=== PATIENT | female | born 1995 | race Caucasian/White ===

== ENCOUNTER 2018-11-29 08:09 | Emergency (ER) | payer OTHER ==
[2018-11-29 08:41] VITALS: BP 129/82
[2018-11-29] MEDS ORDERED: Ketorolac INJ* 30 MG/ML 1 ML VIAL IM ONE (09:21)
--- NOTE | 2018-11-29 09:28 | UC ---
Neck Pain HPI - HPI Summary HPI Summary: 23-year-old woman comes in with a chief complaint of left neck pain. Pain started approximately November 21 the day after she got off a flight from [place]. She was sleeping on a calcium she woke up she had pain in the left lateral lower neck. She's been taking ibuprofen which helps minimally with the pain. Pain is worse when she leans forward and when she takes a deep breath. Sometimes the pain radiates down the back and into the left arm. No shortness of breath. The pain is there constantly but gets worse with bending forward or taking a deep breath. Pain is moderate to severe at this time. No weakness or numbness. No calf pain or tenderness. Patient has no prior history of blood clots. She is on a control pill. No fevers or chills. - History of Current Complaint Chief Complaint: UCUpperExtremity Stated Complaint: LEFT SIDE NECK/SHOULDER PAIN Time Seen by Provider: 11/29/18 09:05 Hx Last Menstrual Period: ~11/01/18 Pain Intensity: 10 - Allergies/Home Medications Allergies/Adverse Reactions: Allergies Allergy/AdvReac Type Severity Reaction Status Date / Time No Known Allergies Allergy Verified 11/29/18 08:37 Home Medications: Home Medications Ibuprofen TAB* [Advil TAB*] 600 mg PO Q6H PRN 11/29/18 [History Confirmed ] Levonorgestrel-Ethin Estradiol [Marlissa-28 Tablet] 1 each PO DAILY 11/29/18 [ History Confirmed 11/29/18] PMH/Surg Hx/FS Hx/Imm Hx Previously Healthy: Yes - Surgical History Surgical History: None - Family History Known Family History: Positive: Non-Contributory - Social History Alcohol Use: None Alcohol Amount: weekends Substance Use Type: None Smoking Status (MU): Never Smoked Tobacco - Immunization History Most Recent Influenza Vaccination: no Vaccination Up to Date: Yes Review of Systems All Other Systems Reviewed And Are Negative: Yes Constitutional: Positive: Negative Skin: Positive: Negative Eyes: Positive: Negative ENT: Positive: Negative Respiratory: Positive: Negative Cardiovascular: Positive: Other - see hpi Gastrointestinal: Positive: Negative Motor: Positive: Negative Neurovascular: Positive: Negative Musculoskeletal: Positive: Other: - see hpi Neurological: Positive: Negative Psychological: Positive: Negative Is Patient Immunocompromised?: No Physical Exam Triage Information Reviewed: Yes Appearance: Well-Appearing, Well-Nourished, Pain Distress - mild/moderate with leaning forward Vital Signs: Initial Vital Signs Temp 98.5 F 11/29/18 08:35 Pulse 69 11/29/18 08:35 Resp 16 11/29/18 08:35 BP 129/82 11/29/18 08:35 Pulse Ox 100 11/29/18 08:35 Neck Pain Course/Dx - Course Course Of Treatment: I recommended further evaluation emergency Department to rule out pulmonary embolus. Patient's pain started the day after she got off a long airplane flight and she is on control pills. Pain is constant although it is worse with certain movements but it's also worse with taking a deep breath. If the pain is primarily and neck injury follow-up would be with sports medicine. I did write a prescription for Flexeril and Sebastian to be used along with ibuprofen as needed. I spoke with Rani and the [facility] emergency department. Patient's going by POV to the emergency department. - Differential Dx/Diagnosis Provider Diagnosis: Neck pain on left side Discharge - Sign-Out/Discharge Documenting (check all that apply): Patient Departure All imaging exams completed and their final reports reviewed: No Studies - Discharge Plan Condition: Stable Disposition: HOME-RECOMMEND TO ED Prescriptions: Cyclobenzaprine TAB* [Flexeril 10 MG TAB*] 10 mg PO TID PRN #15 tab MDD 3 PRN Reason: Pain HYDROcodone/ACETAMIN 5-325 MG* [Sebastian 5-325 TAB*] 1 tab PO Q4H PRN #20 tab MDD 6 PRN Reason: Pain Patient Education Materials: Acute Neck Pain (ED) Forms: *Work Release Referrals: Gregory Mast DO [Primary Care Provider] - [facility] [Provider Group] Additional Instructions: GO DIRECTLY TO THE EMERGENCY DEPARTMENT FOR FURTHER EVALUATION. AFTER EVALUATION IN THE EMERGENCY DEPARTMENT AND PULMONARY EMBOLUS HAS BEEN RULED OUT THE CAUSE OF YOUR PAIN, FOLLOW UP WITH SPORTS MEDICINE. GET REEVALUATED SOONER IF WORSE; PAIN, SHORTNESS OF BREATH, WEAKNESS OR ANY QUESTIONS OR CONCERNS. - Billing Disposition and Condition Condition: STABLE Disposition: Home-Recommend to ED
== END 2018-11-29 09:51 | disposition home health service (06) ==
LOC: UCCORT 08:09
DX: M54.2 Cervicalgia (principal); X50.1XXA Overexertion from prolonged static or awkward postures, initial encounter; Y93.84 Activity, sleeping; Y92.813 Airplane as the place of occurrence of the external cause
CPT/HCPCS: 96372; 99212; G0463; J1885